=== PATIENT | male | born 1975 | race Caucasian/White ===

== ENCOUNTER 2018-12-03 09:33 | Emergency (ER) | payer BC ==
[~2018-12-03] VITALS: Ht 190.5 cm; Wt 88.5 kg
--- NOTE | 2018-12-03 09:45 | NUR ---
CAME IN FOR R WYNN WOUND, NOTED W REDNESS, WARM TO TOUCH, MINIMAL DRAINAGE. WENT TO URGENT CARE 12/01/18, ON ATB FOR 2 DAYS. TO ER BED 3, HOOKED TO MONITOR, AWAITING MD PADILLA.
--- NOTE | 2018-12-03 09:50 | NUR ---
DR STEEN AT BEDSIDE
--- NOTE | 2018-12-03 10:04 | NUR ---
Patient discharged to home in stable condition. Written and verbal after care instructions given. Patient verbalizes understanding of instruction.
[2018-12-03 10:05] VITALS: BP 152/58
== END 2018-12-03 10:06 | disposition home or self-care (01) ==
LOC: ER 09:37
DX: L03.115 Cellulitis of right lower limb (principal)
CPT/HCPCS: Z7502